=== PATIENT | female | born 1995 | race Two or more races ===

== ENCOUNTER → 2024-03-28 | Outpatient (CLI) | payer MEDICAID, SELFPAY ==
--- NOTE | 2024-03-28 11:00 | XR_ITS ---
Examination: Complete OB ultrasound, less than 14 weeks, transabdominal Date and time of exam: March 28, 2024 1144 hours INDICATIONS: Irregular heavy menses months Technique: Obstetrical ultrasound images less than 14 weeks performed via transabdominal imaging Findings: A normal shaped single intrauterine gestation is present in the uterus. pole 1.3 cm corresponds to 7 weeks 3 days gestational age Cardiac motion 157 BPM Subchorionic hemorrhage 13 x 8 mm Ultrasonographic survey of visible structures unremarkable. Amniotic fluid volume appears appropriate for this estimated gestational age. Right ovary 2.3 x 1.7 cm arterial flow Left ovary 3.7 x 2.9 cm arterial flow IMPRESSION: Viable intrauterine gestation 7 weeks 3 days. Given the subchorionic hemorrhage consider short-term follow-up pelvic sonography
== END | disposition home or self-care (01) ==
PROVIDERS: PCP Nurse Practitioner Family; Referring Provider Obstetrics & Gynecology; Visit Provider Obstetrics & Gynecology
DX: N92.6 Irregular menstruation, unspecified (principal); Z33.1 Pregnant state, incidental
CPT/HCPCS: 76801

== ENCOUNTER 2024-10-26 08:09 | Observation (INO) | payer MEDICAID, SELFPAY ==
[2024-10-26 08:22] VITALS: BP 115/81; PULSE 72; RESP 18; RESP 99; TEMP 36.6; BMI 31.4
[2024-10-26 08:30] VITALS: BP 115/81; PULSE 72
[2024-10-26 08:43] VITALS: BP 105/68; PULSE 76
[2024-10-26] MEDS: RINGERS LACTATED 1000 ML 1,000 ML 999 ML IV (09:06)
== END 2024-10-26 10:20 | disposition home or self-care (01) ==
PROVIDERS: Admitting Provider Obstetrics & Gynecology; Visit Provider Obstetrics & Gynecology
DX: O47.1 False labor at or after 37 completed weeks of gestation (principal); Z3A.37 37 weeks gestation of pregnancy
CPT/HCPCS: 59025; 59899; J7120